=== PATIENT | male | born 1970 | race Caucasian/White ===

== ENCOUNTER 2017-12-02 17:16 | Emergency (ER) | payer OTHER ==
--- NOTE | 2017-12-02 17:24 | EDPHY ---
H & P Time Seen by Provider: 12/02/17 17:24 HPI/ROS: CHIEF COMPLAINT: Chest discomfort HISTORY OF PRESENT ILLNESS: The patient presents the ED for evaluation of chest discomfort. The patient reportedly was changing a battery in his car earlier today when he developed chest discomfort. The patient has no prior history of exertional chest pain or shortness of breath. His episode of chest pain lasted 5-10 minutes and resolved. It occurred 2 hr prior to arrival. The patient does have a history of borderline hyperlipidemia. He has no history of hypertension or diabetes. There is no immediate family history of coronary artery disease. The patient does not smoke. The patient denies any recent fever, cough or congestion. The patient does have a history of asthma. He has had occasional palpitations since he was treated for bronchitis with steroids earlier in the year. REVIEW OF SYSTEMS: A comprehensive 10 point review of systems is otherwise negative aside from elements mentioned in the history of present illness. Source: Patient Exam Limitations: No limitations - Medical/Surgical History Other PMH: Past medical history: Asthma, borderline hyperlipidemia - Family History Significant Family History: No pertinent family hx - Social History Smoking Status: Never smoked Alcohol Use: None - Physical Exam Exam: General Appearance: Alert, no distress Eyes: Pupils equal and round no pallor or injection ENT, Mouth: Mucous membranes moist Respiratory: There are no retractions, lungs are clear to auscultation Cardiovascular: Regular rate and rhythm Gastrointestinal: Abdomen is soft and nontender, no masses, bowel sounds normal Neurological: A&O, normal motor function, normal sensory exam, normal cranial nerves Skin: Warm and dry, no rashes Musculoskeletal: Neck is supple nontender Extremities: symmetrical, full range of motion Constitutional: Initial Vital Signs Temperature (C) 36.5 C 12/02/17 17:23 Heart Rate 81 12/02/17 17:23 Respiratory Rate 16 12/02/17 17:23 Blood Pressure 149/92 H 12/02/17 17:23 O2 Sat (%) 99 12/02/17 17:23 O2 Delivery Mode Room Air Allergies/Adverse Reactions: aspirin Allergy (Verified 12/02/17 17:23) Penicillins Allergy (Verified 12/02/17 17:23) Home Medications: Medication Instructions Recorded Albuterol 12/02/17 Medical Decision Making - Diagnostics EKG Interpretation: EKG: Complete interpretation has been separately recorded in the [facility] archive. Summary impression: Sinus rhythm, rate 75 ED Course/Re-evaluation: The patient presents to the ED after a 5 min episode of nonexertional chest pain. The patient has been symptom-free since the episode occurred 2 hr prior to arrival. The patient's EKG in the emergency department demonstrates no evidence of ischemia. His initial 2 hr troponin is normal. The patient was placed on a manager cardiac cath. The patient will have a 4 hr troponin obtained. Troponins x 2 are negative EKG x2 unchanged Re-evaluated patient at 8:30 p.m.. Discussed plan to discharge in follow-up with Cardiology. Patient informed that coronary artery disease not fully excluded based upon the workup today. Differential Diagnosis: Differential diagnosis considered includes acute coronary syndrome, esophageal spasm, pneumonia, pneumothorax, pericarditis - Data Points Laboratory Results: Laboratory Results 12/02/17 18:00 12/02/17 18:03 12/02/17 12/02/17 12/02/17 19:50 18:03 18:00 WBC 6.27 10^3/uL 10^3/uL (3.80-9.50) RBC 5.08 10^6/uL 10^6/uL (4.40-6.38) Hgb 15.0 g/dL g/dL (13.7-17.5) Hct 44.3 % % (40.0-51.0) MCV 87.2 fL fL (81.5-99.8) MCH 29.5 pg pg (27.9-34.1) MCHC 33.9 g/dL g/dL (32.4-36.7) RDW 13.1 % % (11.5-15.2) Plt Count 227 10^3/uL 10^3/uL (150-400) MPV 10.5 fL fL (8.7-11.7) Neut % (Auto) 51.9 % % (39.3-74.2) Lymph % (Auto) 35.4 % % (15.0-45.0) [place] % (Auto) 9.7 % % (4.5-13.0) Eos % (Auto) 1.4 % % (0.6-7.6) Baso % (Auto) 1.0 % % (0.3-1.7) Nucleat RBC Rel Count 0.0 % % (0.0-0.2) Absolute Neuts (auto) 3.25 10^3/uL 10^3/uL (1.70-6.50) Absolute Lymphs (auto) 2.22 10^3/uL 10^3/uL (1.00-3.00) Absolute Monos (auto) 0.61 10^3/uL 10^3/uL (0.30-0.80) Absolute Eos (auto) 0.09 10^3/uL 10^3/uL (0.03-0.40) Absolute Basos (auto) 0.06 10^3/uL 10^3/uL (0.02-0.10) Absolute Nucleated RBC 0.00 10^3/uL 10^3/uL (0-0.01) Immature Gran % 0.6 % % (0.0-1.1) Immature Gran # 0.04 10^3/uL 10^3/uL (0.00-0.10) Sodium 143 mEq/L mEq/L (135-145) Potassium 3.8 mEq/L mEq/L (3.5-5.2) Chloride 105 mEq/L mEq/L (97-110) Carbon Dioxide 25 mEq/l mEq/l (22-31) Anion Gap 13 mEq/L mEq/L (8-16) BUN 23 mg/dL mg/dL (7-23) Creatinine 1.0 mg/dL mg/dL (0.7-1.3) Estimated GFR > 60 Glucose 99 mg/dL mg/dL (70-100) Calcium 9.6 mg/dL mg/dL (8.5-10.4) Troponin I < 0.012 ng/mL ng/mL < 0.012 ng/mL ng/mL (0.000-0.034) (0.000-0.034) Specimen Hemolysis 12/02/17 12/02/17 17:34 17:34 WBC REJ RBC Not Reported Hgb Not Reported Hct Not Reported MCV Not Reported MCH Not Reported MCHC Not Reported RDW Not Reported Plt Count Not Reported MPV Not Reported Neut % (Auto) Not Reported Lymph % (Auto) Not Reported [place] % (Auto) Not Reported Eos % (Auto) Not Reported Baso % (Auto) Not Reported Nucleat RBC Rel Count Not Reported Absolute Neuts (auto) Not Reported Absolute Lymphs (auto) Not Reported Absolute Monos (auto) Not Reported Absolute Eos (auto) Not Reported Absolute Basos (auto) Not Reported Absolute Nucleated RBC Not Reported Immature Gran % Not Reported Immature Gran # Not Reported Sodium REJ Potassium TIE MILL OPERATOR Chloride TIE MILL OPERATOR Carbon Dioxide TIE MILL OPERATOR Anion Gap TIE MILL OPERATOR BUN TIE MILL OPERATOR Creatinine TIE MILL OPERATOR Estimated GFR TIE MILL OPERATOR Glucose TIE MILL OPERATOR Calcium TIE MILL OPERATOR Troponin I REJ Specimen Hemolysis TNP Departure - Departure Disposition: Home, Routine, Self-Care Clinical Impression: Chest pain Condition: Good Instructions: Chest Pain (DC) Additional Instructions: 1. Based upon the testing done in the Emergency Department today we see no evidence of a heart attack. 2. We are unable to fully exclude coronary artery disease based upon the testing available in the Emergency Department. 3. For this reason, we would like you to be seen by cardiology for consideration of additional testing within the next 3 days. 4. Please contact the grocery checker you have been referred to schedule this appointment as soon as possible. Their offices are typically open from 8:30am- 5pm M-F. 5. Please return to the Emergency Department immediately for any recurrent chest pain, difficulty breathing or other concerns. Referrals: Nino Levin MD [Medical Doctor] - As per Instructions
--- NOTE | 2017-12-02 17:32 | CPEKG ---
Heart Rate: 75 RR Interval: 800 P-R Interval: 140 QRSD Interval: 100 QT Interval: 400 QTC Interval: 447 P [place]: 64 QRS [place]: 55 T Wave [place]: 39 EKG Severity - BORDERLINE ECG - EKG Impression: SINUS RHYTHM Electronically Signed By: Kem Bañuelos 02-Dec-2017 19:08:17
[2017-12-02 18:05] LABS: PLATELET COUNT 227 10^3/uL (150-400)
--- NOTE | 2017-12-02 20:21 | CPEKG ---
Heart Rate: 73 RR Interval: 822 P-R Interval: 152 QRSD Interval: 96 QT Interval: 400 QTC Interval: 441 P [place]: 73 QRS [place]: 66 T Wave [place]: 38 EKG Severity - BORDERLINE ECG - EKG Impression: SINUS RHYTHM Electronically Signed By: Kem Bañuelos 02-Dec-2017 21:06:55
[2017-12-02 20:26] VITALS: BP 133/70
== END 2017-12-02 20:43 | disposition home or self-care (01) ==
DX: R07.9 Chest pain, unspecified (principal); J45.909 Unspecified asthma, uncomplicated